=== PATIENT | male | born 1995 | race Caucasian/White ===

== ENCOUNTER → 2016-10-10 | Outpatient (CLI) | payer OTHER ==
[2016-10-10 08:46] LABS: ASPARTATE AMINO TRANSFERASE 23 U/L (15-37); BLOOD UREA NITROGEN 16 mg/dL (7-18)
== END | disposition home or self-care (01) ==
LOC: LAB 07:25
PROVIDERS: ATTEND Internal Medicine
DX: D75.1 Secondary polycythemia (principal); I10 Essential (primary) hypertension; E21.5 Disorder of parathyroid gland, unspecified; R94.5 Abnormal results of liver function studies
CPT/HCPCS: 36415; 80053; 82306; 82728; 83970

== ENCOUNTER → 2017-01-13 | Outpatient (CLI) | payer OTHER ==
[2017-01-13 08:06] LABS: BLOOD UREA NITROGEN 20 mg/dL (7-18)
[2017-01-13 08:18] LABS: ASPARTATE AMINO TRANSFERASE 27 U/L (15-37); TOTAL IRON BINDING CAPACITY 406 mcg/dL (250-450)
[2017-01-13 08:28] LABS: DIFF TOTAL CELLS COUNTED 100 CELL DIFF
[2017-01-13 08:31] LABS: VERIFY COUNTS? YES
== END | disposition home or self-care (01) ==
LOC: LAB 07:37
PROVIDERS: ATTEND Nurse Practitioner Family
DX: E21.5 Disorder of parathyroid gland, unspecified (principal); E55.9 Vitamin D deficiency, unspecified; D75.1 Secondary polycythemia; E83.19 Other disorders of iron metabolism; I10 Essential (primary) hypertension
CPT/HCPCS: 36415; 80053; 82306; 83036; 83540; 83550; 84146; 84436; 84443; 84481; 85025

== ENCOUNTER → 2017-02-07 | Outpatient (CLI) | payer OTHER ==
[2017-02-07 08:36] LABS: FERRITIN 302.3 ng/mL (26-388)
== END | disposition home or self-care (01) ==
LOC: LAB 08:01
PROVIDERS: ATTEND Internal Medicine Endocrinology, Diabetes & Metabolism
DX: E21.2 Other hyperparathyroidism (principal); R94.6 Abnormal results of thyroid function studies
CPT/HCPCS: 36415; 82040; 82306; 82310; 82728; 83970; 84439; 84443; 84481; 86376

== ENCOUNTER → 2017-02-16 | Outpatient (CLI) | payer OTHER | END | disposition home or self-care (01) | LOC: LAB 14:00 | PROVIDERS: ATTEND Internal Medicine Endocrinology, Diabetes & Metabolism | DX: E21.2 Other hyperparathyroidism (principal) | CPT/HCPCS: 36415; 83520 ==

== ENCOUNTER → 2017-03-14 | Outpatient (CLI) | payer OTHER | END | disposition home or self-care (01) | LOC: CVU 09:09 | PROVIDERS: ATTEND Internal Medicine Cardiovascular Disease | DX: I10 Essential (primary) hypertension (principal) | CPT/HCPCS: 93306 ==

== ENCOUNTER → 2017-03-21 | Outpatient (CLI) | payer OTHER | END | disposition home or self-care (01) | LOC: LAB 08:02 | PROVIDERS: ATTEND Internal Medicine Endocrinology, Diabetes & Metabolism | DX: I10 Essential (primary) hypertension (principal); R94.6 Abnormal results of thyroid function studies | CPT/HCPCS: 36415; 82024; 82533; 84305; 84439; 84481 ==

== ENCOUNTER → 2017-04-05 | Outpatient (CLI) | payer OTHER | END | disposition home or self-care (01) | LOC: LAB 07:24 | PROVIDERS: ATTEND Internal Medicine Endocrinology, Diabetes & Metabolism | DX: E21.2 Other hyperparathyroidism (principal) | CPT/HCPCS: 36415; 84443 ==